=== PATIENT | male | born 1945 | race Caucasian/White ===

== ENCOUNTER 2017-03-04 21:00 | Inpatient (IN) | payer OTHER, MEDICARE ==
[~2017-03-04] VITALS: Ht 180.3 cm; Wt 113.5 kg
[2017-03-04 22:09] LABS: HEMATOCRIT 47.3 % (38.0-50.0); MCH 30.7 PG (29.0-34.0); MCV 90.1 FL (86-99); RBC DIS.WIDTH-CV 15.1 % (11.8-14.6); RBC DIS.WIDTH-SD 50.2 % (39-53); RED BLOOD COUNT 5.25 M/uL (4.00-5.50); WHITE BLOOD COUNT 10.8 K/uL (4.1-10.2)
[2017-03-04 22:18] LABS: CHLORIDE 104 mEq/L (99-109); POTASSIUM 3.7 mEq/L (3.7-5.4); SODIUM 139 mEq/L (136-147)
[2017-03-04 22:20] LABS: GLUCOSE 106 mg/dL (70-99)
[2017-03-04 22:21] LABS: ANION GAP 11 MEQ/L (2-14)
[2017-03-04 22:23] LABS: GFR ESTIMATE (CALCULATED) > 59 mL/min/
[2017-03-04 22:24] LABS: UREA NITROGEN (BUN) 17 mg/dL (9-23)
[2017-03-04 22:32] LABS: TROP-I INTERPRETATION NEGATIVE; TROPONIN-I 0.01 ng/mL (0.0-0.30)
[2017-03-04 22:49] LABS: MEAN PLAT.VOLUME 11.2 uM^3 (9.0-12.4); PLAT.SUFFICIENCY ADEQUATE; PLATELET COUNT 172 K/uL (156-360)
[2017-03-04] MEDS ORDERED: PROTONIX40 MG PO (23:38)
[2017-03-04] MEDS ORDERED: LO-DOSE ASPIRIN81 M2 PO (23:39)
[2017-03-04] MEDS ORDERED: ALTACE10 MG PO (23:39)
[2017-03-04] MEDS ORDERED: CRESTOR40 MG PO (23:40)
[2017-03-04] MEDS ORDERED: MEN 50 PLUS MU1 EACH PO (23:42)
[2017-03-04] MEDS ORDERED: FISH OIL 1,2001 EAC4 PO (23:43)
[2017-03-04] MEDS ORDERED: SPIRIVA18 MCG IH (23:43)
[2017-03-04] MEDS ORDERED: FLOVENT DISKUS1 DIS2 IH (23:46)
[2017-03-05 01:36] VITALS: BP 132/75
[2017-03-05 04:30] VITALS: BP 107/57
[2017-03-05 05:51] LABS: TROP-I INTERPRETATION NEGATIVE; TROPONIN-I < 0.01 ng/mL (0.0-0.30)
[2017-03-05 07:46] VITALS: BP 123/74
[2017-03-05 11:17] LABS: TROP-I INTERPRETATION NEGATIVE; TROPONIN-I < 0.01 ng/mL (0.0-0.30)
[2017-03-05 11:23] VITALS: BP 121/71
[2017-03-05 16:00] VITALS: BP 104/55
[2017-03-05 19:45] VITALS: BP 123/61
[2017-03-06 00:20] VITALS: BP 116/70
[2017-03-06 03:54] VITALS: BP 130/74
[2017-03-06 05:43] LABS: HEMATOCRIT 44.6 % (38.0-50.0); MCH 29.4 PG (29.0-34.0); MCHC 32.3 G/DL (30.0-36.0); MEAN PLAT.VOLUME 11.1 uM^3 (9.0-12.4); PLATELET COUNT 167 K/uL (156-360); RBC DIS.WIDTH-CV 15.3 % (11.8-14.6); RBC DIS.WIDTH-SD 50.8 % (39-53); WHITE BLOOD COUNT 19.3 K/uL (4.1-10.2)
[2017-03-06 06:25] LABS: ANION GAP 10 MEQ/L (2-14); CHLORIDE 102 MEQ/L (99-109); GFR ESTIMATE (CALCULATED) > 59 mL/min/; GLUCOSE 156 mg/dL (70-99); POTASSIUM 4.4 MEQ/L (3.7-5.4); SAMPLE HEMOLYSIS CHECK 0; SAMPLE ICTERIC CHECK 0; SAMPLE LIPEMIA CHECK 0; SODIUM 135 MEQ/L (136-147)
[2017-03-06 06:26] LABS: UREA NITROGEN (BUN) 26 mg/dL (9-23)
[2017-03-06 07:10] VITALS: BP 121/72
[2017-03-06 11:15] VITALS: BP 129/78
[2017-03-06] MEDS ORDERED: AZITHROMYCIN500 M1 PO (12:58)
[2017-03-06] MEDS ORDERED: PREDNISONE20 MG PO (12:58)
[2017-03-06] MEDS ORDERED: CEFTIN500 MG PO (12:58)
== END 2017-03-06 17:00 | disposition home or self-care (01) | DRG 192 ==
LOC: EME 21:00 → 4EAST 23:04 → EDOF 23:04 → ENRESERV 23:07 → 4EAST 03-05 01:26 → ENPENDDIS 03-06 → 4EAST 03-06 17:00
PROVIDERS: Emergency Medicine; Internal Medicine
DX: J44.0 Chronic obstructive pulmonary disease with (acute) lower respiratory infection (principal); J20.9 Acute bronchitis, unspecified; J44.1 Chronic obstructive pulmonary disease with (acute) exacerbation; R55 Syncope and collapse; I10 Essential (primary) hypertension; E78.5 Hyperlipidemia, unspecified; I25.118 Atherosclerotic heart disease of native coronary artery with other forms of angina pectoris; I25.708 Atherosclerosis of coronary artery bypass graft(s), unspecified, with other forms of angina pectoris; K21.9 Gastro-esophageal reflux disease without esophagitis; F17.210 Nicotine dependence, cigarettes, uncomplicated; E66.9 Obesity, unspecified; Z68.34 Body mass index [BMI] 34.0-34.9, adult; I25.2 Old myocardial infarction; Z79.82 Long term (current) use of aspirin; Z82.49 Family history of ischemic heart disease and other diseases of the circulatory system
CPT/HCPCS: 71020; 80048; 83880; 83880 GA; 84484; 85027; 85379; 93005; 94640; 94640 76; 94799; 99202; 99281; 99285; J0696; J1650; J2930; J7050; J7512

== ENCOUNTER 2017-07-26 09:55 | Emergency (ER) | payer OTHER, MEDICARE ==
[~2017-07-26] VITALS: Ht 180.3 cm; Wt 111.3 kg
[~2017-07-26 09:55] MED LIST: ALTACE10 MG PO; AZITHROMYCIN500 M1 PO; CEFTIN500 MG PO; CRESTOR40 MG PO; FISH OIL 1,2001 EAC4 PO; FLOVENT DISKUS1 DIS2 IH; LO-DOSE ASPIRIN81 M2 PO; MEN 50 PLUS MU1 EACH PO; PREDNISONE20 MG PO; PROTONIX40 MG PO; SPIRIVA18 MCG IH
[2017-07-26 11:20] LABS: BASOPHIL (%) 0.5 % (0-1); BASOPHIL COUNT 0.1 K/uL (0-0.1); EOSINOPHIL (%) 1.3 % (0-5); EOSINOPHIL COUNT 0.2 K/uL (0-0.3); HEMOGLOBIN 15.8 G/DL (12.5-16.6); IMMATURE GRANULOCYTE (%) 0.4 % (0.0-0.7); LYMPHOCYTE (%) 15.7 % (15-42); LYMPHOCYTE COUNT 2.2 K/uL (1.0-2.8); MCHC 33.6 G/DL (30.0-36.0); MCV 92.2 FL (86-99); MONOCYTE (%) 9.7 % (3-12); MONOCYTE COUNT 1.4 K/uL (0-0.8); NEUTROPHIL (%) 72.4 % (45-76); NEUTROPHIL COUNT 10.2 K/uL (1.8-6.4); PLATELET COUNT 153 K/uL (156-360); RBC DIS.WIDTH-CV 15.9 % (11.8-14.6); RBC DIS.WIDTH-SD 54.4 % (39-53); WHITE BLOOD COUNT 14.1 K/uL (4.1-10.2)
[2017-07-26 11:29] LABS: CHLORIDE 106 mEq/L (99-109); POTASSIUM 4.6 mEq/L (3.7-5.4); SODIUM 141 mEq/L (136-147)
[2017-07-26 11:31] LABS: GLUCOSE 134 mg/dL (70-99)
[2017-07-26 11:32] LABS: TOTAL PROTEIN 7.3 g/dL (6.4-8.3)
[2017-07-26 11:33] LABS: TOTAL BILIRUBIN 0.9 mg/dL (0.0-1.0)
[2017-07-26 11:35] LABS: ALKALINE PHOSPHATASE 102 IU/L (3-129); GFR ESTIMATE (CALCULATED) > 59 mL/min/ (58.99-99999)
[2017-07-26 11:36] LABS: UREA NITROGEN (BUN) 12 mg/dL (9-23)
[2017-07-26 11:37] LABS: AST (GOT) 34 IU/L (2-34)
[2017-07-26 11:38] LABS: ALT (GPT) 81 IU/L (3-49); LIPASE 16 U/L (1.0-51.0)
[2017-07-26 11:41] LABS: TROP-I INTERPRETATION NEGATIVE; TROPONIN-I < 0.01 ng/mL (0.0-0.30)
[2017-07-26 14:36] LABS: APPEARANCE SL.HAZY ((CLEAR)); BILIRUBIN NEGATIVE; BLOOD NEGATIVE; COLOR AMBER ((YELLOW)); GLUCOSE (STRIP) NEGATIVE; KETONES NEGATIVE; LEUKOCYTES NEGATIVE; NITRITE NEGATIVE; PROTEIN (STRIP) 30
[2017-07-26 14:50] LABS: BACTERIA RARE /HPF; EPITHELIAL CELLS RARE /HPF; MUCUS 1+ /LPF; RED BLOOD CELLS 0-5 /HPF (0-5); UCUL ADDED? NO; WHITE BLOOD CELLS 0-5 /HPF (0-5)
[2017-07-26] MEDS ORDERED: FLAGYL500 MG PO (16:22)
[2017-07-26] MEDS ORDERED: CIPRO500 MG PO (16:22)
[2017-07-26 16:43] LABS: C DIFF TOXIN POSITIVE (NEGATIVE)
[2017-07-26] MEDS ORDERED: VANCOCIN HCL125 MG PO (17:18)
[2017-07-26 17:37] VITALS: BP 116/65
== END 2017-07-26 18:05 | disposition home or self-care (01) ==
LOC: EME 09:55
PROVIDERS: Emergency Medicine
DX: K57.32 Diverticulitis of large intestine without perforation or abscess without bleeding (principal); A04.72 Enterocolitis due to Clostridium difficile, not specified as recurrent; K21.9 Gastro-esophageal reflux disease without esophagitis; I25.2 Old myocardial infarction; F17.200 Nicotine dependence, unspecified, uncomplicated; Z79.82 Long term (current) use of aspirin; Z86.718 Personal history of other venous thrombosis and embolism; Z95.1 Presence of aortocoronary bypass graft; Z90.49 Acquired absence of other specified parts of digestive tract
CPT/HCPCS: 74177; 80053; 81003; 83605; 83630; 83690; 84484; 85025; 87493; 87506; 99281; 99285; J7030